=== PATIENT | female | born 1990 | race Caucasian/White ===

== ENCOUNTER 2018-11-11 13:10 | Emergency (ER) | payer MEDICAID ==
[~2018-11-11] VITALS: Ht 160 cm; Wt 55.8 kg
[2018-11-11 13:25] VITALS: BP 127/82
[2018-11-11] MEDS ORDERED: TDAP [DIPH/PERTUSSIS/TET] 0.5 ML VIAL IM ONE ×2 (13:41→14:00)
[2018-11-11] MEDS ORDERED: KETOROLAC TROMETHAMINE INJ 30 MG/ML VIAL ONE (13:41)
[2018-11-11] MEDS ORDERED: SILVER SULFADIAZINE CREAM 25 GM TUBE ONE (13:55)
[2018-11-11] MEDS ORDERED: SILVER SULFADIAZINE CREAM 25 GM TUBE TP ONE (14:00)
[2018-11-11] MEDS ORDERED: KETOROLAC TROMETHAMINE INJ 30 MG/ML VIAL IM ONE (14:00)
== END 2018-11-11 17:49 | disposition home or self-care (01) ==
LOC: ER 13:14
DX: T24.211A Burn of second degree of right thigh, initial encounter (principal); T24.112A Burn of first degree of left thigh, initial encounter; T31.0 Burns involving less than 10% of body surface; X10.0XXA Contact with hot drinks, initial encounter; Y93.89 Activity, other specified; Y92.89 Other specified places as the place of occurrence of the external cause; Y99.8 Other external cause status
CPT/HCPCS: 16020; 90471; 90715; 96372; 99284; J1885